=== PATIENT | male | born 1960 | race Two or more races ===

== ENCOUNTER → 2025-08-08 | Emergency (ER) | payer OTHER ==
[~2025-08-08] VITALS: Ht 175.3 cm; Wt 91.6 kg
[~2025-08-08] MED LIST: CEFTRIAXONE SODIUM 1,000 MG VIAL IM ONE; CEFTRIAXONE SODIUM 1,000 MG VIAL ONE; CEFUROXIME500 MG PO; DIPHTH,PERTUSS(ACELL),TET VAC 0.5 ML SYRINGE IM ONE; KETOROLAC TROMETHAMINE 30 MG VIAL ONE; KETOROLAC TROMETHAMINE 60 MG VIAL IM ONE; LIDOCAINE HCL 1% 10ML VIAL ONE; LIDOCAINE HCL 1% 10ML VIAL PERCUT ONE; PEPCID AC20 MG PO
== END | disposition home or self-care (01) ==
LOC: ER 15:50
DX: S61.211A Laceration without foreign body of left index finger without damage to nail, initial encounter (principal); W45.8XXA Other foreign body or object entering through skin, initial encounter; Y93.89 Activity, other specified; Y92.89 Other specified places as the place of occurrence of the external cause; Y99.8 Other external cause status
CPT/HCPCS: 12002; 73130; 90471; 90714; 96372; 99283; J0696; J1670; J1885